=== PATIENT | female | born 1980 | race African-American/Black ===

== ENCOUNTER 2022-04-06 11:46 | Emergency (ER) | payer OTHER ==
[2022-04-06 12:06] VITALS: BP 105/66; PULSE 80; RESP 20; TEMP 98.7; BMI 31.8
[2022-04-06 15:28] LABS: BASO % 1.6 % (0-2.0); EOS % 0.5 % (0-4.5); HEMATOCRIT 34.1 % (32.4-45.2); HEMOGLOBIN 11.4 GM/dL (10.7-15.3); LYMPH % 27.5 % (8-40); MCH 30.6 pg (25.7-33.7); MCHC 33.3 g/dl (32.0-36.0); MEAN CELL VOLUME 91.8 fl (80-96); MEAN PLT VOLUME 7.2 fl (7.5-11.1); MONO % 8.8 % (3.8-10.2); NEUT % 61.6 % (42.8-82.8); PLATELET COUNT 392 10^3/uL (134-434); RBC 3.72 M/mm3 (3.60-5.2); RDW 14.8 % (11.6-15.6); WHITE BLOOD COUNT 6.1 K/mm3 (4.0-10.0)
[2022-04-06 15:37] LABS: INR 0.99 (0.83-1.09); PROTHROMBIN TIME (PATIENT) 11.4 SEC (9.7-13.0)
[2022-04-06 15:39] LABS: ACTIVATED PTT 26.6 SECONDS (25.2-36.5)
[2022-04-06 16:38] LABS: ALBUMIN 3.1 g/dl (3.4-5.0); BLOOD UREA NITROGEN 7.4 mg/dL (7-18)
[2022-04-06 16:41] LABS: CREATININE 0.6 mg/dL (0.55-1.3)
[2022-04-06 16:43] LABS: BILIRUBIN,TOTAL 0.4 mg/dL (0.2-1); TOT PROT 6.8 g/dl (6.4-8.2)
== END 2022-04-06 15:45 | disposition left against medical advice (07) ==
LOC: JER 11:46
DX: O26.851 Spotting complicating pregnancy, first trimester (principal); Z3A.00 Weeks of gestation of pregnancy not specified
CPT/HCPCS: 36415; 76801-TC; 80053; 83735; 84702; 85025; 85610; 85730; 86850; 86900; 86901; 99284-25